=== PATIENT | female | born 1945 | race Caucasian/White ===

== ENCOUNTER → 2020-07-27 15:14 | Outpatient (CLI) | payer MEDICARE, SELFPAY ==
--- NOTE | ~2020-07-27 | MR_ITS ---
EXAMINATION: MR shoulder RT wo con DATE: 07/27/2020 16:09 INDICATION: Right shoulder pain and limited range of motion post fall 2 weeks prior TECHNIQUE: Magnetic resonance imaging (MRI) of the right shoulder was performed without intravenous c ontrast. Sequences included axial PD-weighted FS FSE, coronal oblique PD-weighted FS FSE, coronal obl ique T2-weighted FS FSE, sagittal PD-weighted FS FSE, and sagittal T1-weighted SE. COMPARISON: None. FINDINGS: Evaluation mildly limited by small amount of motion blurring on several sequences. Coracoacromial arch: The acromion undersurface is curved in morphology (type II). The coracoacromial ligament is normal. M oderate acromioclavicular osteoarthritis. Rotator cuff: Mild supraspinatus and infraspinatus tendinopathy. There is attenuation of the distal 1.5 cm the supr aspinatus tendon with increased fluid signal along the superior facet footplate consistent with parti al-thickness intrasubstance tear with no evident extension across the bursal or articular surfaces. T he tear measures approximately 1 cm AP and involves 1/3-1/2 of the tendon thickness. The subscapulari s and teres minor tendons are normal. There is mild likely age-related diffuse fatty atrophy of the s [place] girdle musculature. More prominent moderate fatty atrophy of the teres minor muscle belly. Biceps tendon, glenoid labrum and glenohumeral cartilage: Mild tendinopathy and longitudinal split tearing of the long head biceps tendon. Small minimally disp laced Bankart fracture extending for approximately 1.5 cm along the anteroinferior rim of the glenoid . At least partial tear with increased signal at the 3:00 and 9:00 position of the glenoid labrum. Re mainder of the labrum appears intact. Partial thickness cartilage loss with relatively smooth surface and without a focal deeper cartilage defect along the glenoid and humeral head. Fluid: Small glenohumeral joint effusion. 15 x 9 x 5 mm filling defect at the axillary recess which could r epresent a degenerative loose body, more acute displaced cartilage or meniscal fragment or clot relat ed to prior posttraumatic hemarthrosis. Small amount of fluid in the subacromial/subdeltoid bursa whi ch could be related to mild bursitis or reactive fluid related to the recent trauma. Bones: In addition to the osseous Bankart fracture there is marrow edema surrounding a Hill-Sachs fracture a t the posterolateral aspect of the humeral head. No pathologic marrow replacing process. IMPRESSION: 1. Osseous Bankart fracture along the anteroinferior rim of the glenoid and corresponding Hill-Sachs fracture at the humeral head consistent with recent anterior dislocation injury. 2. Mild supraspinatus and infraspinatus tendinopathy with mild to moderate severity partial-thickness intrasubstance tear along the superior facet footplate of the supraspinatus tendon. 3. Mild tendinopathy and longitudinal split tearing of the long head biceps tendon. 4. 15 x 9 x 5 mm filling defect at the axillary recess which could represent a degenerative loose bod y, posttraumatic loose chondral or labral fragment or clot. 5. Mild glenohumeral and moderate acromioclavicular osteoarthritis. Reviewed, dictated and finalized at location A. IMPRESSION: 1. Osseous Bankart fracture along the anteroinferior rim of the glenoid and cor responding Hill-Sachs fracture at the humeral head consistent with recent anter ior dislocation injury. 2. Mild supraspinatus and infraspinatus tendinopathy with mild to moderate miya rity partial-thickness intrasubstance tear along the superior facet footplate o f the supraspinatus tendon. 3. Mild tendinopathy and longitudinal split tearing of the long head biceps ten don. 4. 15 x 9 x 5 mm filling defec
== END ==
DX: M25.511 Pain in right shoulder (principal); S42.201A Unspecified fracture of upper end of right humerus, initial encounter for closed fracture; S46.011A Strain of muscle(s) and tendon(s) of the rotator cuff of right shoulder, initial encounter; S46.111A Strain of muscle, fascia and tendon of long head of biceps, right arm, initial encounter; M19.011 Primary osteoarthritis, right shoulder
CPT/HCPCS: 73221